=== PATIENT | female | born 1960 | race Caucasian/White ===

== ENCOUNTER 2021-01-20 08:44 | Emergency (ER) | payer SELFPAY ==
[2021-01-20] VITALS (18 sets, daily range): BP systolic 67–170; BP diastolic 17–91; PULSE 24–165; RESP 11–79; O2SAT 80–91
--- NOTE | 2021-01-20 08:30 | RT.EKG_ITS ---
APPROVED REPORT Exam: Resting ECG Reason for Exam: sob Patient Location: E HR:154 bpm ECG Measurements Heart Rate 154 AXIS FL 126 P 75 QRSd 112 QRS 84 QT 347 T 0 QTc 554 Conclusion Sinus tachycardia. Wandering baseline Low voltage, q waves inferior
--- NOTE | 2021-01-20 08:59 | ED.GENADUL_ITS ---
Discharge Plan Disposition Patient Disposition: Discharge Details Clinical Impression: Cardiopulmonary arrest Primary Care Provider: Nohelia,Local ED Provider: Siva Alba Discharge Data Date/Time: 01/20/21 10:05 Cause of : Pulmonary embolism Discharge Date/Time-TO BE ENTERED AT DEPARTURE: 01/20/21 10:05 Medical Decision Making 60-year-old female with rapid onset dyspnea for which EMS was called. There was report that she had recently traveled from the [place]. EMS found her to be hyperventilating and tachycardic. She was brought to the ER with a pulse in the 150s, anxious in appearance, oxygenating 92 to 94% on supplemental oxygen. Her admission EKG showed a narrow complex sinus tachycardia with right axis deviation. After initial triage patient had bradycardia, became unresponsive and lost her pulse. CODE BLUE was initiated with immediate CPR. Patient had no peripheral IV access. Resuscitation was initiated. A right tibia IO was placed, right AC fossa peripheral line placed. Anesthesia was present for the resuscitation and initially placed a supraglottic airway, and subsequently the airway secured with an endotracheal tube. The patient received numerous administrations of epinephrine, atropine. She had recurrent episodes of regaining pulse, subsequently becoming bradycardic and losing pulse with recurring attempts at resuscitation. She was placed on an epinephrine drip which was escalated to maximum. Subsequently dopamine drip was added. She was also given bicarb, calcium gluconate, as well as Narcan. Given the abrupt onset of tachycardia, subjective report of dyspnea, and report of recent travel, I considered massive and fatal PE within the differential diagnosis. Patient was started on alteplase in a last ditch effort to resuscitate her. After approximately greater than 1 hour of resuscitative efforts with recurrent pulselessness, the patient progressed to a rhythm of PEA, bedside ultrasound revealed no cardiac activity, and she was pronounced at 10:05 AM. The medical insurance claims specialist's office was contacted. Further history taking with family reveals the patient drove to [place] with her son and then flew back arriving yesterday. She passed out at her father's home on [facility] this morning after which EMS was called. After my discussion with the medical insurance claims specialist on- call, Herrera Dahl, we agree this is highly suspicious of massive PE; the medical insurance claims specialist will not order an investigation. Patient's Alvarado is available at the phone number [phone]. HPI General Mode of arrival: EMS . Date/Time Provider Initiated Documentation: 01/20/21 09:07 . Limitations to Documentation: no limitations . Information obtained by: patient and EMS . History of Present Illness 60 year old F presents to the emergency department with the chief complaint of Anxious and short of breath, described as moderate, Quality is described as constant, Patient reports no radiation. Patient started experiencing this minute(s) and it has been constant. No relieving factors improve symptom(s), No exacerbating factors reported . Patient notes denies chest pain, headach es and syncope. Patient did receive the following treatments prior to arrival, none General Stated Complaint: RespSymp ASHISH: 2 Review of Systems Narrative: unobtainable [facility] Social History Smoking/Tobacco Use Status: Never Smoking risk assessment performed?: Yes Drug use: Never Substance use type: does not use Do you feel safe at home: Yes Do you feel safe in your relationship?: Yes Exam Narrative Exam Narrative: GEN: awake, dyspneic, anxious HEAD: Normocephalic, atraumatic ENT: Mucous membranes dry, External ear exam unremarkable EYES: PERRL, EOMI NECK: Full ROM, no SAUL, no menigismus CHEST/RESP: Nontender, distant, hyperpneic CARDIOVASCULAR: Regular and tachycardic, Distant ABDOMEN: Soft, nontender, no mass EXT: Full ROM, no edema, no rash Neuro: Grossly normal neurologic exam, interactive Psych: Speech halted, anxious Course Vital Signs Vital signs: Vital Signs Pulse 156 H 01/20/21 08:43 Respiratory Rate 30 H 01/20/21 08:43 Pulse Oximetry 91 L 01/20/21 08:43 Pulse 156 H 01/20/21 08:43 Respiratory Rate 30 H 01/20/21 08:43 Respiratory Effort 01/20/21 08:53 Blood Pressure Position Sitting 01/20/21 08:43 Pulse Oximetry 91 L 01/20/21 08:43 Oxygen Delivery Method Nasal Cannula 01/20/21 08:43 Oxygen Flow Rate 3 01/20/21 08:43 Procedures Central Line Placement Right Femoral: Time Out Performed: Yes Patient Placed on Monitor/Pulse Ox: Yes Prep: mask and gloves Central Line Prep: Chlorhexidine scrub and other Central Line Lumen Inserted: triple Post Procedure: good blood return and all ports aspirated, flushed, capped Critical Care Time Critical Care Time Total Critical Care Time: 50
[2021-01-20] MEDS: EPINEPHrine 1 MG/10 ML SYR ×4 (09:05→10:44)
[2021-01-20] MEDS: Normal Saline 1,000 ML 1000 ML IV ×3 (09:12→09:33)
[2021-01-20] MEDS: EPINEPHrine 1 MG/10 ML SYR IVP ×5 (09:15→09:48)
[2021-01-20 09:28] LABS: Abs Immature Grans 0.45 10^3/uL (0.0-0.06); Absolute Basophil Count 0.17 10^3/uL (0.0-0.2); Absolute Eosinophil Count 0.42 10^3/uL (0.0-0.7); Absolute Monocyte Count 1.21 10^3/uL (0.1-0.8); Absolute Neutrophil Count 7.78 10^3/uL (1.2-6.7); Eosinophils % 2.5; HCT 44.6 % (36.0-46.0); HGB 14.2 g/dL (11.2-15.7); Immature Grans % 2.7; Lymphocytes % 40.2; MCH 32.6 pg (27.0-33.0); MCHC 31.8 % (32.0-36.0); MCV 102.5 fL (80-95); MPV 10.2 fL (8.0-11.0); Monocytes % 7.2; Neutrophils % 46.4; Nucleated RBC 0 %; Platelet Count 257 10^3/uL (130-400); RBC 4.35 10^6/uL (3.93-5.22); RDW 12.5 % (11.7-14.6); RDW-SD 47.2 fL; WBC 16.76 10^3/uL (4.4-10.8)
[2021-01-20 09:36] LABS: Absolute Lymphocyte Count 6.74 10^3/uL (1.2-3.4)
[2021-01-20 09:39] LABS: HCO3 16 mmol/L (22-26); sO2 10 % (95-98); tCO2 17 mmol/L (23-27)
[2021-01-20] MEDS: DOPamine 400 MG/250 ML BAG 38.513 MG IV (09:39)
[2021-01-20 09:40] LABS: ALT 101 U/L (14-59); AST 114 U/L (15-37); Albumin 3.2 g/dL (3.4-5.0); Alkaline Phosphatase 94 U/L (46-116); Anion Gap 18.8 mmol/L (3-11); BUN 17 mg/dL (7-18); Bilirubin, Total 0.7 mg/dL (0.2-1.0); CO2 21.2 mmol/L (21.0-32.0); CREATININE 1.6 mg/dL (0.55-1.02); Calcium 8.8 mg/dL (8.5-10.1); Chloride 99 mmol/L (98-107); ETHANOL BLOOD < 3.0 mg/dL (<3); Estimated GFR 32.99 (mL/min/1.73m2); Glucose 377 mg/dL (74-106); Sodium 139 mmol/L (136-145); Total Protein 6.7 g/dL (6.4-8.2)
[2021-01-20 09:41] LABS: Potassium 2.4 mmol/L (3.5-5.1)
[2021-01-20 09:42] LABS: Site Arterial Line
[2021-01-20 09:43] LABS: pCO2 80 mmHg (35-45); pO2 16 mmHg (80-105)
[2021-01-20] MEDS: Calcium Gluconate 4.65 MEQ/10 ML VIAL 4.65 MG IVP (09:44)
[2021-01-20] MEDS: Sodium Bicarbonate 50 MEQ/50 ML SYR IVP ×2 (09:48→09:55)
[2021-01-20 09:54] LABS: Diff Comment Diff Reviewed; Macrocytosis 1+
[2021-01-20 10:00] LABS: Troponin I 0.29 ng/mL (<0.06)
[2021-01-20 10:15] LABS: D-Dimer > 7500 ng/mlFEU (<500)
--- NOTE | 2021-01-20 11:27 | RESPIRATORY ---
RT called to Code Blue and assisted in placing a size 4 Igel oral airway. Pt ventilated at a rate of 12-14. Pt was intubated at 0930 with a 7.5 ET tube fastened by tape at 23/lip. Pt again ventilated at a rate of 12. Per MD ventilation stopped at 1003.
--- NOTE | 2021-01-20 23:57 | NUR.NOTE ---
Nursing Note: CALLED AT 23;[address] SY KNOW HE DID NOT WANT AUTOPSY PERFORMED AND THAT [facility] SHOULD BE HERE TO GET HER 01/20/21
== END 2021-01-20 10:05 | disposition expired ==
PROVIDERS: Emergency Provider Emergency Medicine
DX: I46.9 Cardiac arrest, cause unspecified (principal); I26.99 Other pulmonary embolism without acute cor pulmonale
CPT/HCPCS: 36416; 36556; 80053; 82805; 82962; 92950; 93005; 96361; 96365; 96368; 96374; 96375; 96376; 99291; 80320; 84484; 85025; 85379; 93010; J0171; J0610; J1265; J2310; J2997